=== PATIENT | female | born 2000 | race Caucasian/White ===

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

== ENCOUNTER → 2020-08-02 11:25 | Outpatient (CLI) | payer BC, SELFPAY ==
--- NOTE | 2020-08-02 11:40 | XR_ITS ---
PROCEDURE: XR CHEST PORTABLE CLINICAL HISTORY: COVID SCREENING Cough COMPARISON: No exams were available for comparison FINDINGS: The cardiomediastinal silhouette and pulmonary vascularity are within normal limits. The lungs are clear without infiltrates, suspicious nodules, or pleural effusions. No acute bony abnormalities. IMPRESSION: No acute findings. Dictated by: Anthony Blanc MD 08/02/2020 14:58 Anthony Blanc MD in [place] 08/02/2020 14:58
== END ==
PROVIDERS: PCP Nurse Practitioner; Visit Provider Nurse Practitioner
DX: Z20.822 Contact with and (suspected) exposure to COVID-19 (principal); R50.9 Fever, unspecified; R05 Cough
CPT/HCPCS: 71045; U0003

== ENCOUNTER 2023-07-26 07:52 | Outpatient (CLI) | payer BC, OTHER, SELFPAY ==
--- NOTE | 2023-07-26 08:04 | US_ITS ---
FINAL REPORT CLINICAL HISTORY: NAUSEA FINDINGS: Sonographic images of the abdomen were obtained. The liver has an unremarkable appearance with normal echogenicity. There is sludge in the gallbladder. There is no evidence of biliary ductal dilatation. The common hepatic duct measures 2 mm, which is within normal limits. Limited images of the pancreas are unremarkable. The spleen size is normal. The right kidney measures 9.6 cm in length. The left kidney measures 10.3 cm in length. There is normal renal echogenicity. There is no evidence of hydronephrosis. The aorta has an unremarkable appearance. Limited images of the inferior vena cava are unremarkable. IMPRESSION: Gallbladder sludge. Reviewed, Interpreted and Dictated by Boni Sher MD Transcribed by Dulce Costa Authenticated and [facility]
== END 2023-07-26 23:59 ==
PROVIDERS: PCP Nurse Practitioner; Visit Provider Family Medicine
DX: R11.0 Nausea (principal)
CPT/HCPCS: 76700